=== PATIENT | female | born 1960 | race Caucasian/White ===

== ENCOUNTER → 2017-06-23 | Outpatient (CLI) | payer BC ==
--- NOTE | 2017-06-24 09:33 | MM ---
Reason for exam: screening (asymptomatic). Last mammogram was performed 3 years and 5 months ago. History: Patient is postmenopausal and had first child at age 32. Family history of endometrial cancer in maternal cousin and breast cancer in maternal aunt at age 80. Physical Findings: A clinical breast exam by your physician is recommended on an annual basis and results should be correlated with mammographic findings. MG Screening Mammo w CAD Bilateral CC and MLO view(s) were taken. Prior study comparison: January 11, 2014, bilateral MG screening mammo w CAD. July 20, 2009, bilateral digital screening mammogram. The breast tissue is almost entirely fat. There is no discrete abnormality. ASSESSMENT: Negative, BI-RAD 1 RECOMMENDATION: Routine screening mammogram of both breasts in 1 year.
== END | disposition home or self-care (01) ==
LOC: RADMAMWWP 10:47
PROVIDERS: ATTEND Family Medicine
DX: Z12.31 Encounter for screening mammogram for malignant neoplasm of breast (principal); Z80.3 Family history of malignant neoplasm of breast
CPT/HCPCS: 77067

== ENCOUNTER → 2017-07-08 | Outpatient (CLI) | payer BC ==
--- NOTE | 2017-07-08 08:21 | US ---
EXAMINATION TYPE: US abdomen limited DATE OF EXAM: 07/08/2017 COMPARISON: NONE CLINICAL HISTORY: Abnormal results of liver function R94.5;GERD EXAM MEASUREMENTS: Liver Length: 12.1 cm Gallbladder Wall: 0.2 cm CBD: 0.5 cm Right Kidney: 9.5 x 5.2 x 4.5 cm Pancreas: prominent pancreatic duct = 0.4cm Liver: no masses seen Gallbladder: full of multiple shadowing stones with echoes noted in neck of gallbladder in LLD and p emerson position Evidence for sonographic Ontiveros's sign: No CBD: wnl Right Kidney: wnl IMPRESSION: 1. Prominent pancreatic duct questionable hypoechogenicity within the pancreas recommend CT scan of t he abdomen pelvis. 2. Cholelithiasis but no gallbladder wall thickening or pericholecystic fluid.
== END | disposition home or self-care (01) ==
LOC: RADUSWWP 07:21
PROVIDERS: ATTEND Family Medicine
DX: K80.20 Calculus of gallbladder without cholecystitis without obstruction (principal); R94.5 Abnormal results of liver function studies
CPT/HCPCS: 76705

== ENCOUNTER → 2017-10-02 | Outpatient (CLI) | payer BC ==
--- NOTE | 2017-10-02 12:57 | MR ---
EXAMINATION TYPE: MR pancreas wo/w con DATE OF EXAM: 10/02/2017 COMPARISON: Limited abdominal ultrasound July 08, 2017 HISTORY: Dilated pancreatic duct, abnormal CT and ultrasound. Abnormal liver function test and histor y of reflux. CONTRAST: Standard multiplanar, multisequence MRI departmental protocol utilizing 10 mL intravenous Gadavist ga dolinium contrast. FINDINGS: Pancreas: Pancreas is normal in size without worrisome solid or cystic mass. Pancreatic duct is visua lized slightly more prominent in the head and proximal body and measures up to 4 mm. Seen best on axi al T1-weighted images there is emptying of main pancreatic duct superior and anterior to the common b ile duct emptying, this is noted on axial image 251 versus axial image 226 series 701. Pancreatic fin dings are consistent with underlying divisum. Other: Stone filled gallbladder is redemonstrated. No surrounding inflammatory changes seen. There is no suspicious intrahepatic or extra hepatic biliary dilatation. Liver is normal in size without susp icious solid or cystic mass. Spleen is unremarkable. Both adrenal glands are normal in size and appea r unremarkable. There are few tiny subcentimeter cysts scattered throughout the visualized left kidne y. No hydronephrosis is present bilaterally. Lung bases are grossly clear. There is redemonstration o f fairly moderate size hiatal hernia. There is no suspicious small or large bowel dilatation. A few s cattered colonic diverticula are seen on MRI. Visualized osseous structures are intact. There is no a bdominal ascites. There is no suspicious greater than 1 cm abdominal adenopathy. IMPRESSION: Mild pancreatic ductal dilatation is felt on basis of underlying divisum. Mild duct dilatation is fel t transient as was not present on CT. No suspicious mass identified. Gallstones are redemonstrated.
== END ==
LOC: RADMRIMAIN 07:11
PROVIDERS: ATTEND Surgery
DX: K86.89 Other specified diseases of pancreas (principal); K80.80 Other cholelithiasis without obstruction
CPT/HCPCS: 74183; A9581

== ENCOUNTER 2018-02-15 18:43 | Emergency (ER) | payer BC ==
[2018-02-15 18:52] VITALS: RESP 18
[2018-02-15] MEDS ORDERED: SODIUM CHLORIDE 0.9% 500 ML IV STA (19:29)
--- NOTE | 2018-02-15 19:32 | ED ---
General Adult HPI - General Source: patient, RN notes reviewed Mode of arrival: ambulatory Limitations: no limitations <Isra Pride - Last Filed: 02/15/18 20:45> <Susie Huizar - Last Filed: 02/15/18 22:53> - General Chief complaint: Abdominal Pain Stated complaint: Back/Abdominal Pain Time Seen by Provider: 02/15/18 18:50 - History of Present Illness Initial comments: This is a 57-year-old female presents emergency Department complaining of abdominal cramping. Patient states she's had 3 episodes today with approximately 2 hours in between episodes. Patient states the cramping goes around the whole upper abdomen and into her back. Patient states it makes her nauseous and on the way in to the emergency department she vomited. Patient states currently she has no pain whatsoever. Patient denies any diarrhea. Patient states she had a normal bowel movement today. Patient denies any fever chills per patient denies any chest pain difficulty breathing or shortness of breath. Patient denies any dysuria hematuria urinary frequency. Patient states she has had a tubal ligation but no other abdominal surgeries. Patient denies having similar symptoms in the past. (Isra Pride) - Related Data Home Medications Medication Instructions Recorded Confirmed Omeprazole 20 mg PO HS 03/30/14 02/15/18 Allergies Allergy/AdvReac Type Severity Reaction Status Date / Time No Known Allergies Allergy Verified 02/15/18 18:52 Review of Systems ROS Other: All systems not noted in ROS Statement are negative. <Isra Pride - Last Filed: 02/15/18 20:45> ROS Other: All systems not noted in ROS Statement are negative. <Susie Huizar - Last Filed: 02/15/18 22:53> ROS Statement: Those systems with pertinent positive or pertinent negative responses have been documented in the HPI. Past Medical History Past Medical History: GERD/Reflux History of Any Multi-Drug Resistant Organisms: MRSA Date of last positivie culture/infection: 2011, 2012 MDRO Source:: 2012-BUTTOCKS, 2013-[facility] Past Surgical History: Cardiac Ablation, Tubal Ligation Additional Past Surgical History / Comment(s): CARDIAC ABLATION-2006 Past Anesthesia/Blood Transfusion Reactions: Motion Sickness, Postoperative Nausea & Vomiting (PONV) Past Psychological History: No Psychological Hx Reported Smoking Status: Never smoker Past Alcohol Use History: None Reported Past Drug Use History: None Reported - Past Family History Sister(s) Family Medical History: Cancer <Isra Pride - Last Filed: 02/15/18 20:45> General Exam Limitations: no limitations <Pride,Isra - Last Filed: 02/15/18 20:45> <Susie Huizar - Last Filed: 02/15/18 22:53> - General Exam Comments Initial Comments: GENERAL: Patient is well-developed and well-nourished. Patient is nontoxic and well- hydrated and is in no acute distress. ENT: Neck is soft and supple. No significant lymphadenopathy is noted. Oropharynx is clear. Moist mucous membranes. Neck has full range of motion without eliciting any pain. EYES: The sclera were anicteric and conjunctiva were pink and moist. Extraocular movements were intact and pupils were equal round and reactive to light. Eyelids were unremarkable. PULMONARY: Unlabored respirations. Good breath sounds bilaterally. No audible rales rhonchi or wheezing was noted. CARDIOVASCULAR: There is a regular rate and rhythm without any murmurs gallops or rubs. ABDOMEN: Soft and nontender with normal bowel sounds. No palpable organomegaly was noted. There is no palpable pulsatile mass. SKIN: Skin is clear with no lesions or rashes and otherwise unremarkable. NEUROLOGIC: Patient is alert and oriented x3. Cranial nerves II through XII are grossly intact. Motor and sensory are also intact. Normal speech, volume and content. Symmetrical smile. MUSCULOSKELETAL: Normal extremities with adequate strength and full range of motion. No lower extremity swelling or edema. No calf tenderness. LYMPHATICS: No significant lymphadenopathy is noted PSYCHIATRIC: Normal psychiatric evaluation. (Isra Pride) Vital Signs 02/15/18 02/15/18 02/15/18 18:50 21:17 22:10 Temperature 98.6 F Pulse Rate 110 H 88 74 Respiratory 18 18 18 Rate Blood Pressure 128/64 113/66 119/70 O2 Sat by Pulse 96 95 96 Oximetry Medical Decision Making - Lab Data Result diagrams: 02/15/18 20:05 02/15/18 20:05 <Isra rPide - Last Filed: 02/15/18 20:45> - Lab Data Result diagrams: 02/15/18 20:05 02/15/18 20:05 <Susie Huizar - Last Filed: 02/15/18 22:53> - Medical Decision Making Dr. Huizar will be taking over the care of this patient at 9 PM. (Isra Pride) Patient care was signed out to me by Dr. Pride. Patient with episodic abdominal pain with associated nausea. Labs revealed elevated transaminases, a gallbladder ultrasound was ordered. At time of sign out patient's gallbladder ultrasound was pending gallbladder ultrasound revealed a intractable gallbladder with no evidence of acute cholecystitis but multiple gallstones and no stones in the ducts. I reevaluated patient who has remained comfortable throughout her ED stay with no further episodes of abdominal pain nausea or vomiting. Ultrasound results Were discussed with the patient who states she has followed with Dr. Mckay in the past for this, she will contact his office tomorrow for reevaluation and re-discussion of elective cholecystectomy. Return parameters were discussed. All questions pertaining care were answered best my ability patient was discharged home in stable condition. (Susie Huizar) - Lab Data Lab Results 02/15/18 02/15/18 02/15/18 Range/Units 20:05 20:05 20:05 WBC 8.9 (3.8-10.6) k/uL RBC 4.82 (3.80-5.40) m/uL Hgb 14.1 (11.4-16.0) gm/dL Hct 43.2 (34.0-46.0) % MCV 89.5 (80.0-100.0) fL MCH 29.3 (25.0-35.0) pg MCHC 32.8 (31.0-37.0) g/dL RDW 13.2 (11.5-15.5) % Plt Count 211 (150-450) k/uL Neutrophils % 86 % Lymphocytes % 10 % Monocytes % 3 % Eosinophils % 0 % Basophils % 0 % Neutrophils # 7.7 (1.3-7.7) k/uL Lymphocytes # 0.9 L (1.0-4.8) k/uL Monocytes # 0.3 (0-1.0) k/uL Eosinophils # 0.0 (0-0.7) k/uL Basophils # 0.0 (0-0.2) k/uL Sodium 139 (137-145) mmol/L Potassium 4.2 (3.5-5.1) mmol/L Chloride 105 (98-107) mmol/L Carbon Dioxide 24 (22-30) mmol/L Anion Gap 10 mmol/L BUN 16 (7-17) mg/dL Creatinine 0.70 (0.52-1.04) mg/dL Est GFR (CKD-EPI)AfAm >90 (>60 ml/min/1.73 sqM) Est GFR (CKD-EPI)NonAf >90 (>60 ml/min/1.73 sqM) Glucose 117 H (74-99) mg/dL Calcium 9.7 (8.4-10.2) mg/dL Total Bilirubin 2.0 H (0.2-1.3) mg/dL AST 415 H (14-36) U/L ALT 289 H (9-52) U/L Alkaline Phosphatase 173 H (38-126) U/L Total Protein 7.0 (6.3-8.2) g/dL Albumin 4.1 (3.5-5.0) g/dL Amylase 58 (30-110) U/L Lipase 147 (23-300) U/L Urine Color Yellow Urine Appearance Cloudy H (Clear) Urine pH 8.0 (5.0-8.0) Ur Specific [place] 1.018 (1.001-1.035) Urine Protein 1+ H (Negative) Urine Glucose (UA) Negative (Negative) Urine Ketones Negative (Negative) Urine Blood Negative (Negative) Urine Nitrite Negative (Negative) Urine Bilirubin 1+ H (Negative) Urine Urobilinogen 2.0 (<2.0) mg/dL Ur Leukocyte Esterase Moderate H (Negative) Urine WBC 12 H (0-5) /hpf Ur Squamous Epith Cells 12 H (0-4) /hpf Amorphous Sediment Rare H (None) /hpf Urine Bacteria Moderate H (None) /hpf Urine Mucus Few H (None) /hpf Disposition <Isra Pride - Last Filed: 02/15/18 20:45> Is patient prescribed a controlled substance at d/c from ED?: No <Susie Huizar - Last Filed: 02/15/18 22:53> Clinical Impression: Cholelithiases Disposition: HOME SELF-CARE Condition: Good Instructions: Biliary Colic (ED), Gallstones (ED) Additional Instructions: Call your surgeon tomorrow to establish follow up and discuss elective cholecystectomy Referrals: Donta Nelson MD [Primary Care Provider] - 1-2 days
[2018-02-15 20:16] LABS: Basophils % (A) 0 %; Eosinophils % (A) 0 %; HCT 43.2 % (34.0-46.0); HGB 14.1 gm/dL (11.4-16.0); Lymphocytes # (A) 0.9 k/uL (1.0-4.8); Lymphocytes % (A) 10 %; MCH 29.3 pg (25.0-35.0); MCHC 32.8 g/dL (31.0-37.0); MCV 89.5 fL (80.0-100.0); Mean Platelet Volume 6.6; Monocytes # (A) 0.3 k/uL (0-1.0); Monocytes % (A) 3 %; Neutrophils # (A) 7.7 k/uL (1.3-7.7); Neutrophils % (A) 86 %; Platelet Count 211 k/uL (150-450); RBC 4.82 m/uL (3.80-5.40); RDW 13.2 % (11.5-15.5); WBC 8.9 k/uL (3.8-10.6)
[2018-02-15 20:19] LABS: Amorphous Sediment,Urine Rare /hpf; Appearance,Urine Cloudy (Clear); Bacteria,Urine Moderate /hpf; Bilirubin,Urine 1+ (Negative); Blood,Urine Negative (Negative); Color,Urine Yellow; Glucose,Urine (UA) Negative (Negative); Ketones,Urine Negative (Negative); Leukocyte Esterase,Urine Moderate (Negative); Mucus,Urine Few /hpf; Nitrite,Urine Negative (Negative); Protein,Urine 1+ (Negative); Specific Gravity,Urine 1.018 (1.001-1.035); Squamous Epithelial Cell,Urine 12 /hpf (0-4); WBC,Urine 12 /hpf (0-5)
[2018-02-15 20:28] LABS: ALT 289 U/L (9-52); AST 415 U/L (14-36); Albumin 4.1 g/dL (3.5-5.0); Alkaline Phosphatase 173 U/L (38-126); Amylase 58 U/L (30-110); Anion Gap 10 mmol/L; Blood Urea Nitrogen 16 mg/dL (7-17); Calcium 9.7 mg/dL (8.4-10.2); Carbon Dioxide 24 mmol/L (22-30); Chloride 105 mmol/L (98-107); Glucose 117 mg/dL (74-99); Lipase 147 U/L (23-300); Potassium 4.2 mmol/L (3.5-5.1); Sodium 139 mmol/L (137-145)
--- NOTE | 2018-02-15 20:28 | XR ---
EXAMINATION TYPE: XR KUB DATE OF EXAM: 02/15/2018 COMPARISON: NONE HISTORY: Abdominal pain TECHNIQUE: 2 views FINDINGS: There is no sign of intestinal obstruction or pneumoperitoneum. Fecal pattern is normal. Gala ng bases are clear. There are no pathologic calcifications. IMPRESSION: Nonacute abdomen.
--- NOTE | 2018-02-15 22:10 | US ---
EXAMINATION TYPE: US gallbladder DATE OF EXAM: 02/15/2018 COMPARISON: 07/08/2017 CLINICAL HISTORY: Pain. Back pain, epigastric pain, nausea and vomiting today. History of gallstones EXAM MEASUREMENTS: Liver Length: 13.3 cm Gallbladder Wall: 0.4 cm CBD: 0.4 cm Right Kidney: 9.5 x 4.3 x 4.3 cm Technical limitations due to large amount of overlying bowel content Pancreas: duct = 0.3cm Liver: visualized portions appear wnl Gallbladder: filled with stones, GB wall upper limits of normal Evidence for sonographic Ontiveros's sign: yes CBD: appears wnl as visualized Right Kidney: no evidence of hydronephrosis or mass as visualized IMPRESSION: There is a contracted gallbladder filled with stones. No adverse change compared to old e xam. No dilated ducts.
[2018-02-15 23:28] VITALS: BP 128/81; PULSE 94; TEMP 97.8
== END 2018-02-15 23:28 | disposition home or self-care (01) ==
LOC: EC 18:43
DX: K80.20 Calculus of gallbladder without cholecystitis without obstruction (principal); K21.9 Gastro-esophageal reflux disease without esophagitis; Z98.51 Tubal ligation status; Z79.899 Other long term (current) drug therapy
CPT/HCPCS: 36415; 74018; 76705; 80053; 81001; 82150; 83690; 85025; 96360; 99284

== ENCOUNTER 2018-03-19 07:50 | Day surgery (SDC) | payer BC ==
[2018-03-16 11:09] VITALS: BMI 38.2
[~2018-03-19 07:50] MED LIST: HEPARIN SODIUM,PORCINE 5,000 UNIT/ML 1 ML VIAL SQ ONE; LACTATED RINGERS 1,000 ML IV SCH; ceFAZolin IN SWFI 2 GM/20 ML SYRINGE IVP ONE
--- NOTE | 2018-03-19 08:31 | P.GSHP ---
History of Present Illness H&P Date: 03/19/18 Chief Complaint: Chronic cholecystitis Patient seen in the office earlier this year. Has a history of known gallstones. Slightly elevated liver enzymes. Ultrasound also showed a dilated pancreatic duct. Follow-up CAT scan and subsequent MRI shows no definite pancreatic abnormality with the exception of pancreatic divisum. Patient has had some upper abdominal pain recently. Recent ultrasound again shows contracted gallbladder with stones. Past Medical History Past Medical History: GERD/Reflux Additional Past Medical History / Comment(s): GALLBLADDER DISORDER History of Any Multi-Drug Resistant Organisms: MRSA Date of last positivie culture/infection: 2011, 2012 MDRO Source:: 2011-BUT[place]OCKS, 2012-[facility] Past Surgical History: Cardiac Ablation, Tubal Ligation Additional Past Surgical History / Comment(s): CARDIAC ABLATION-2005 Past Anesthesia/Blood Transfusion Reactions: Motion Sickness, Postoperative Nausea & Vomiting (PONV) Smoking Status: Never smoker - Past Family History Sister(s) Family Medical History: Cancer Medications and Allergies Home Medications Medication Instructions Recorded Confirmed Type Omeprazole 20 mg PO HS 03/30/14 03/19/18 History Allergies Allergy/AdvReac Type Severity Reaction Status Date / Time No Known Allergies Allergy Verified 03/19/18 08:00 Surgical - Exam Vital Signs Temp Pulse Resp BP Pulse Ox 98.8 F 110 H 20 115/80 97 03/19/18 08:13 03/19/18 08:13 03/19/18 08:13 03/19/18 08:13 03/19/18 08:13 Physical exam: General: Well-developed, well-nourished HEENT: Normocephalic, sclerae nonicteric Abdomen: Nontender, nondistended Extremities: No edema Neuro: Alert and oriented Assessment and Plan (1) Chronic cholecystitis Narrative/Plan: Will proceed with laparoscopic cholecystectomy. Risks of bleeding, infection, bile leak, bile duct injury, retained common bile duct stone, trocar injury, conversion to an open procedure, hernia, anesthesia related complications were reviewed. The patient understands and wishes to proceed. Current Visit: Yes Status: Acute Code(s): K81.1 - CHRONIC CHOLECYSTITIS SNOMED Code(s): 02787653
[2018-03-19] MEDS ORDERED: LIDOCAINE 1% 20 ML VIAL (10MG/ML) FOR IV START INTRADERMA ONE (08:33)
[2018-03-19] MEDS ORDERED: DEXAMETHASONE SOD PHOS (MDV) 100 MG/10 ML VIAL IVP ONE (08:36)
[2018-03-19] MEDS ORDERED: ONDANSETRON 4 MG/2 ML VIAL IVP ONE ×2 (08:36→10:40)
[2018-03-19] MEDS ORDERED: MIDAZOLAM 2 MG/2 ML VIAL IVP ONE (08:49)
[2018-03-19] MEDS ORDERED: LIDOCAINE 1% INJ 10MG/ML (20 ML MDV) ONE (09:10)
[2018-03-19] MEDS ORDERED: ROCURONIUM BROMIDE 10 MG/ML 10 ML VIAL IV ONE (09:10)
[2018-03-19] MEDS ORDERED: GLYCOPYRROLATE 0.2 MG/ML 2 ML VIAL ONE (09:10)
[2018-03-19] MEDS ORDERED: NEOSTIGMINE 1 MG/ML 10 ML VIAL ONE (09:10)
[2018-03-19] MEDS ORDERED: fentaNYL (PF) 50 MCG/ML 2 ML AMP ONE (09:10)
[2018-03-19] MEDS ORDERED: PROPOFOL 10 MG/ML 20 ML VIAL IV ONE (09:10)
[2018-03-19] MEDS ORDERED: PHENYLEPHRINE-0.9% NACL SYG 1 MG/10 ML SYRINGE ONE (09:10)
[2018-03-19] MEDS ORDERED: MIDAZOLAM 2 MG/2 ML VIAL ONE (09:10)
[2018-03-19] MEDS ORDERED: BUPIVACAIN-EPI 0.5%-1:200,000 30 ML VIAL SQ ONE ×2 (09:33)
[2018-03-19] MEDS ORDERED: HYDROcodone/APAP 5-325MG 1 EACH TAB PO PRN (10:04)
[2018-03-19] MEDS ORDERED: NALOXONE 0.4 MG/ML 1 ML VIAL IV PRN (10:04)
--- NOTE | 2018-03-19 10:06 | P.OP ---
Date of Procedure: 03/19/18 Procedure(s) Performed: PREOPERATIVE DIAGNOSIS: Chronic cholecystitis POSTOPERATIVE DIAGNOSIS: Same PROCEDURE: Laparoscopic cholecystectomy SURGEON: Adamaris EBL: Minimal see anesthesia record ANESTHESIA: Gen. COMPLICATIONS: None OPERATIVE PROCEDURE: The patient was brought and placed on the operating room table in the supine position. The patient was placed under general anesthesia at that time. The abdomen was prepped and draped in the usual sterile fashion. A small vertical infraumbilical incision was made. The fascia was grasped with the Waqas forceps. The fascia was retracted anteriorly. The Veress needle was advanced into the peritoneal cavity. The saline drop test was normal. Insufflation took place up to 15 mmHg. A 5 mm optical trocar was advanced and the peritoneal cavity. 2 additional 5 mm trochars were placed in the right upper quadrant under direct visualization. A 10 mm trocar was advanced into the epigastric incision site. The gallbladder was retracted superiorly and laterally. The peritoneum overlying the infundibulum was bluntly dissected. The patient's cystic duct was visualized. The junction between the cystic duct common and hepatic duct was identified. The cystic duct was then divided after placement of 3 10 mm clips on the patient's side and one on the specimen side. The cystic artery was identified and clipped as well. A small vessel was seen along the gallbladder fossa and clipped as well. The gallbladder was then removed from the liver bed using electrocautery. The gallbladder was then removed from the epigastric trocar site with an Endo Catch bag. The gallbladder fossa was irrigated with saline. There was no evidence of any bleeding or biliary drainage seen. The trochars were then removed. The fascia at the 10 millimeter site was closed using a Israel- Chandler 0 Vicryl stitch. The skin at all 4 sites was closed using a 4-0 Monocryl stitch. At the end of this procedure the sponge and needle counts were correct. DISPOSITION: Stable to the recovery room
[2018-03-19 10:19] VITALS: TEMP 98.2
[2018-03-19] MEDS ORDERED: LACTATED RINGERS 1,000 ML IV ONE (10:24)
[2018-03-19] MEDS ORDERED: HYDROmorphone 1 MG/ML 1 ML SYRINGE IVP ONE (10:41)
[2018-03-19] MEDS ORDERED: PROMETHAZINE INJ 25 MG/ML 1 ML VIAL IVPB ONE (11:48)
[2018-03-19 11:52] VITALS: RESP 18
[2018-03-19 12:53] VITALS: BP 135/88; PULSE 89
== END 2018-03-19 14:17 | disposition home or self-care (01) ==
LOC: OR 07:50
PROVIDERS: ATTEND Surgery
DX: K80.10 Calculus of gallbladder with chronic cholecystitis without obstruction (principal); K21.9 Gastro-esophageal reflux disease without esophagitis; Z86.14 Personal history of Methicillin resistant Staphylococcus aureus infection; Z79.899 Other long term (current) drug therapy
CPT/HCPCS: 88304; 47562; J2250; J1644; J2550; J2710; J2405; J2001; J3010; J1170; J1100; J2370; J2704; J0690

== ENCOUNTER → 2023-02-25 | Outpatient (CLI) | payer BC ==
--- NOTE | 2023-02-25 16:41 | BD ---
EXAMINATION TYPE: Axial Bone Density DATE OF EXAM: 02/25/2023 CLINICAL HISTORY: 62 years old Female. ICD-10 CODE: Z78.0 Menopause Height: 63.25 Weight: 213 FRAX RISK QUESTIONS: Family History (Parent hip fracture): no History of Fracture in Adulthood: no Secondary Osteoporosis: yes 5. Chronic liver disease: yes, fatty liver Rheumatoid Arthritis: no RISK FACTORS HISTORY OF: Family History of Osteoporosis: yes, mother Active: yes Diet low in dairy products/other sources of calcium: yes Postmenopausal woman: yes Lost more than 2 inches in height since high school: no Frequent falls: no MEDICATIONS: Additional Medications: yes reflux EXAM MEASUREMENTS: Bone mineral densitometry was performed using the [employer] System. Bone mineral density as measured about the Lumbar spine is: ----- L1-L4(G/cm2): 1.158 T Score Values are as follows: ----- L1: -1.1 ----- L2: -0.3 ----- L3: 0.4 ----- L4: -0.2 ----- L1-L4: -0.2 Z Score Values are as follows: ----- L1: 0.7 ----- L2: 0.1 ----- L3: 0.8 ----- L4: 0.2 ----- L1-L4: 0.2 Bone mineral density baseline Bone mineral density about the R hip (g/cm2): 1.024 Bone mineral density about the L hip (g/cm2): 1.038 T Score values are as follows: -----R Neck: -0.6 -----L Neck: -0.5 -----R Total: 0.1 -----L Total: 0.2 Z Score values are as follows: -----R Neck: 0.1 -----L Neck: 0.2 -----R Total: 0.5 -----L Total: 0.6 Bone mineral density baseline FRAX%s: The graph provided illustrates a 6.5% chance for a major osteoporotic fx and a 0.3% chance fo r the hips probability for fx in 10 years time. IMPRESSION: Normal (Values between +1 and -1 indicate normal bone mass). Consider repeating this study in 5 year s or sooner if there is some new clinical indication. NOTE: T-SCORE=SD OF THE YOUNG ADULT MEAN.
--- NOTE | 2023-02-26 08:46 | MM ---
Reason for Exam: Screening (asymptomatic). Last mammogram was performed 5 year(s) and 8 month(s) ago. Patient History: Menarche at age 9. First Full-Term at age 32. Late child-bearing (after 30). Postmenopausal. Maternal cousin had breast cancer, age 65. Maternal aunt had breast cancer, age 80. Risk Values: Vesta 5 year model risk: 2.4%. NCI Lifetime model risk: 10.0%. Prior Study Comparison: 07/20/2009 Bilateral Screening Mammogram, [facility]. 01/11/2014 Bilateral Screening Mammogram, [facility]. 06/23/2017 Bilateral Screening Mammogram, [facility]. Tissue Density: There are scattered fibroglandular densities. Findings: Analyzed By CAD. There is no suspicious group of microcalcifications or new suspicious mass in either breast. Overall Assessment: Negative, BI-RAD 1 Management: Screening Mammogram of both breasts in 1 year. . Patient should continue monthly self-breast exams. A clinical breast exam by your physician is recommended on an annual basis. This exam should not preclude additional follow-up of suspicious palpable abnormalities. Note on Vesta scores and lifetime risk: 1. A Vesta score greater than 3% is considered moderate risk. If this is the case, consider specialist referral to assess eligibility for a risk reducing agent. 2. If overall lifetime risk for the development of breast cancer is 20% or higher, the patient may qualify for future screening with alternating mammogram and breast MRI. Electronically signed and approved by: Gorver Moreno M.D. Radiologis
== END | disposition home or self-care (01) ==
LOC: RADMAMWWP 06:55
PROVIDERS: ATTEND Family Medicine
DX: Z12.31 Encounter for screening mammogram for malignant neoplasm of breast (principal); M85.88 Other specified disorders of bone density and structure, other site; Z78.0 Asymptomatic menopausal state; Z80.3 Family history of malignant neoplasm of breast
CPT/HCPCS: 77063; 77067; 77080

== ENCOUNTER 2023-06-25 12:10 | Emergency (ER) | payer BC ==
[2023-06-25 12:34] VITALS: RESP 18
--- NOTE | 2023-06-25 12:59 | ED ---
Dizziness HPI - General Chief Complaint: Syncope Stated Complaint: Syncope Time Seen by Provider: 06/25/23 12:12 Source: EMS, RN notes reviewed, old records reviewed Mode of arrival: EMS Limitations: no limitations - History of Present Illness Initial Comments: This is a 62-year-old female to the emergency room for evaluation today. Patient presents to the ER today for evaluation regards to dizzinesssyncopal event. Patient had a syncopal event while at work which was witnessed by coworkers insisted patient was more unresponsive than she did pass out she did not fall to ground patient currently is back to baseline she has no complaint of headache chest pain shortness breath or abdominal pain. MD Complaint: dizziness, lightheadedness, near syncope -: days(s) Timing: sudden onset, gradual onset Description: near-syncope (Syncope) History of Same: No History of Trauma: No Severity: moderate Improves With: remaining still Worsens With: nothing Associated Symptoms: syncope, weakness - Related Data Home Medications Medication Instructions Recorded Confirmed Omeprazole 20 mg PO DAILY 03/30/14 06/25/23 D-Methorphan/PE/Acetaminophen 1 cap PO BID PRN 06/25/23 06/25/23 [Vicks Dayquil Liquicaps] Unknown Decongestant Nasal Gering 1 dose EA NOSTRIL BID PRN 06/25/23 06/25/23 Allergies Allergy/AdvReac Type Severity Reaction Status Date / Time No Known Allergies Allergy Verified 06/25/23 13:52 Review of Systems ROS Statement: Those systems with pertinent positive or pertinent negative responses have been documented in the HPI. ROS Other: All systems not noted in ROS Statement are negative. Past Medical History Past Medical History: GERD/Reflux Additional Past Medical History / Comment(s): GALLBLADDER DISORDER History of Any Multi-Drug Resistant Organisms: MRSA Date of last positivie culture/infection: 2011, 2012 MDRO Source:: 2011-[place]S, 2013-[facility] Past Surgical History: Cardiac Ablation, Tubal Ligation Additional Past Surgical History / Comment(s): CARDIAC ABLATION-2005 Past Anesthesia/Blood Transfusion Reactions: Motion Sickness, Postoperative Nausea & Vomiting (PONV) Past Psychological History: No Psychological Hx Reported Past Alcohol Use History: None Reported Past Drug Use History: None Reported - Past Family History Sister(s) Family Medical History: Cancer General Exam Limitations: no limitations General appearance: alert, in no apparent distress Head exam: Present: atraumatic, normocephalic, normal inspection Eye exam: Present: normal appearance, PERRL, EOMI. Absent: scleral icterus, conjunctival injection, periorbital swelling ENT exam: Present: normal exam, mucous membranes moist Neck exam: Present: normal inspection. Absent: tenderness, meningismus, lymphadenopathy Respiratory exam: Present: normal lung sounds bilaterally. Absent: respiratory distress, wheezes, rales, rhonchi, stridor Cardiovascular Exam: Present: regular rate, normal rhythm, normal heart sounds. Absent: systolic murmur, diastolic murmur, rubs, gallop, clicks GI/Abdominal exam: Present: soft, normal bowel sounds. Absent: distended, tenderness, guarding, rebound, rigid Extremities exam: Present: normal inspection, full ROM, normal capillary refill. Absent: tenderness, pedal edema, joint swelling, calf tenderness Back exam: Present: normal inspection Neurological exam: Present: alert, oriented X3, CN II-XII intact Psychiatric exam: Present: normal affect, normal mood Skin exam: Present: warm, dry, intact, normal color. Absent: rash Course Vital Signs 06/25/23 06/25/23 06/25/23 12:26 15:19 16:17 Temperature 97.8 F 97.7 F Pulse Rate 82 95 92 Respiratory 18 18 18 Rate Blood Pressure 114/75 126/74 O2 Sat by Pulse 99 99 99 Oximetry - Reevaluation(s) Reevaluation #1: Medical records reviewed Reevaluation #2: Patient symptoms improved Reevaluation #3: Patient informed results and questions answered Reevaluation #4: Was pt. sent in by a medical professional or institution (, PA, COLORER, urgent care, hospital, or prison...) When possible be specific @ -no Did you speak to anyone other than the patient for history (EMS, parent, family, police, friend...)? What history was obtained from this source @ -no Did you review nursing and triage notes (agree or disagree)? Why? @ -agree Are old charts reviewed (outside hosp., previous admission, EMS record, old EKG, old radiological studies, urgent care reports/EKG's, prison records)? Report findings @ -yes Differential Diagnosis (chest pain, altered mental status, abdominal pain women, abdominal pain men, vaginal bleeding, weakness, fever, dyspnea, syncope, headache, dizziness, GI bleed, back pain, seizure, CVA, palpatations, mental health, musculoskeletal)? @ -prior EKG interpreted by me (3pts min.). @ -yes X-rays interpreted by me (1pt min.). @ -yes negative for acute disease CT interpreted by me (1pt min.). @ -no U/S interpreted by me (1pt. min.). @ -no What testing was considered but not performed or refused? (CT, X-rays, U/S, lab s)? Why? @ -none What meds were considered but not given or refused? Why? @ -none Did you discuss the management of the patient with other professionals (professionals i.e. , PA, COLORER, lab, RT, psych nurse, long term care social worker, vp product, teacher, public safety officer, case folder)? Give summary @ -no Was smoking cessation discussed for >3mins.? @ -no Were there social determinants of health that impacted care today? How? (Homelessness, low income, unemployed, alcoholism, drug addiction, transportation, low edu. Level, literacy, decrease access to med. care, [facility], rehab)? @ -none Was there de-escalation of care discussed even if they declined (Discuss DNR or withdrawal of care, Hospice)? DNR status @ -no What co-morbidities impacted this encounter? (DM, HTN, Smoking, COPD, CAD, Cancer, CVA, ARF, Chemo, Hep., AIDS, mental health diagnosis, sleep apnea, morbid obesity)? @ -none Was patient admitted / discharged? Hospital course, mention meds given and route, prescriptions, significant lab abnormalities, going to OR and other pertinent info. @ - 62 female to the ER today for evaluation today. Patient presents today for evaluation regards to syncopal event of. Unresponsiveness. Patient is no acute findings here in the ER feels well can be discharged home Discharge Was critical care preformed (if so, how long)? @ -no Undiagnosed new problem with uncertain prognosis? @ -no Drug Therapy requiring intensive monitoring for toxicity (Heparin, Nitro, Insulin, Cardizem)? @ -no Were any procedures done? @ -no Diagnosis/symptom? @ -Syncope and unresponsiveness Acute, or Chronic, or Acute on Chronic? @ -Acute Uncomplicated (without systemic symptoms) or Complicated (systemic symptoms)? @ -Complicated Side effects of treatment? @ -no Exacerbation, Progression, or Severe Exacerbation? @ -exacerbation Poses a threat to life or bodily function? How? (Chest pain, [place], [place], pneumonia, PE, COPD, DKA, ARF, appy, cholecystitis, CVA, Diverticulitis, Homicidal, Suicidal, threat to staff... and all critical care pts) @ -yes with any cause of syncope Reevaluation #5: Differential Dizziness: Benign paroxysmal positional Vertigo, Menieres disease, otitis media, acoustic neuroma, vertebrobasilar insufficiency, cerebellar stroke, encephalitis, hypovolemic, arrhythmia, coronary artery syndrome, anemia, this is not meant to be an all-inclusive list EKG Findings - EKG Comments: EKG Findings:: EKG is sinus 76 AL 152 QRS 88 QTc 392 - EKG Results: EKG: interpreted by [facility] Medical Decision Making - Medical Decision Making 62 female to the ER today for evaluation today. Patient presents today for evaluation regards to syncopal event of. Unresponsiveness. Patient is no acute findings here in the ER feels well can be discharged home - Lab Data Result diagrams: 06/25/23 13:09 06/25/23 13:09 Lab Results 06/25/23 06/25/23 06/25/23 Range/Units 13:09 13:09 13:09 WBC 14.5 H (3.8-10.6) k/uL RBC 5.26 (3.80-5.40) m/uL Hgb 16.1 H (11.4-16.0) gm/dL Hct 46.5 H (34.0-46.0) % MCV 88.5 (80.0-100.0) fL MCH 30.7 (25.0-35.0) pg MCHC 34.7 (31.0-37.0) g/dL RDW 12.8 (11.5-15.5) % Plt Count 224 (150-450) k/uL MPV 7.7 Neutrophils % 76 % Lymphocytes % 15 % Monocytes % 7 % Eosinophils % 1 % Basophils % 0 % Neutrophils # 11.1 H (1.3-7.7) k/uL Lymphocytes # 2.1 (1.0-4.8) k/uL Monocytes # 1.1 H (0-1.0) k/uL Eosinophils # 0.1 (0-0.7) k/uL Basophils # 0.0 (0-0.2) k/uL PT 10.9 (10.0-12.5) sec INR 1.0 (<1.2) APTT 19.7 L (22.0-30.0) sec D-Dimer 0.57 (<0.60) mg/L FEU Sodium 137 (137-145) mmol/L Potassium 3.7 (3.5-5.1) mmol/L Chloride 102 (98-107) mmol/L Carbon Dioxide 22 (22-30) mmol/L Anion Gap 13 mmol/L BUN 29 H (7-17) mg/dL Creatinine 0.68 (0.52-1.04) mg/dL Est GFR (CKD-EPI)AfAm >90 (>60 ml/min/1.73 sqM) Est GFR (CKD-EPI)NonAf >90 (>60 ml/min/1.73 sqM) Glucose 101 H (74-99) mg/dL Calcium 9.1 (8.4-10.2) mg/dL Magnesium 1.9 (1.6-2.3) mg/dL Total Bilirubin 0.8 (0.2-1.3) mg/dL AST 72 H (14-36) U/L ALT 75 H (4-34) U/L Alkaline Phosphatase 137 H (38-126) U/L Troponin I (0.000-0.034) ng/mL Total Protein 6.3 (6.3-8.2) g/dL Albumin 3.6 (3.5-5.0) g/dL Lipase 181 (23-300) U/L 06/25/23 Range/Units 13:09 WBC (3.8-10.6) k/uL RBC (3.80-5.40) m/uL Hgb (11.4-16.0) gm/dL Hct (34.0-46.0) % MCV (80.0-100.0) fL MCH (25.0-35.0) pg MCHC (31.0-37.0) g/dL RDW (11.5-15.5) % Plt Count (150-450) k/uL MPV Neutrophils % % Lymphocytes % % Monocytes % % Eosinophils % % Basophils % % Neutrophils # (1.3-7.7) k/uL Lymphocytes # (1.0-4.8) k/uL Monocytes # (0-1.0) k/uL Eosinophils # (0-0.7) k/uL Basophils # (0-0.2) k/uL PT (10.0-12.5) sec INR (<1.2) APTT (22.0-30.0) sec D-Dimer (<0.60) mg/L FEU Sodium (137-145) mmol/L Potassium (3.5-5.1) mmol/L Chloride (98-107) mmol/L Carbon Dioxide (22-30) mmol/L Anion Gap mmol/L BUN (7-17) mg/dL Creatinine (0.52-1.04) mg/dL Est GFR (CKD-EPI)AfAm (>60 ml/min/1.73 sqM) Est GFR (CKD-EPI)NonAf (>60 ml/min/1.73 sqM) Glucose (74-99) mg/dL Calcium (8.4-10.2) mg/dL Magnesium (1.6-2.3) mg/dL Total Bilirubin (0.2-1.3) mg/dL AST (14-36) U/L ALT (4-34) U/L Alkaline Phosphatase (38-126) U/L Troponin I <0.012 (0.000-0.034) ng/mL Total Protein (6.3-8.2) g/dL Albumin (3.5-5.0) g/dL Lipase (23-300) U/L - EKG Data -: EKG Interpreted by [facility] - Radiology Data Radiology results: report reviewed (Chest x-rays negative for acute disease), image reviewed Disposition Clinical Impression: Syncope Disposition: HOME SELF-CARE Condition: Good Instructions (If sedation given, give patient instructions): Syncope (ED) Is patient prescribed a controlled substance at d/c from ED?: No Referrals: Donta Nelson MD [Primary Care Provider] - 1-2 days Time of Disposition: 15:00
[2023-06-25] MEDS ORDERED: SODIUM CHLORIDE 0.9% 1,000 ML IV STA (13:02)
[2023-06-25 13:30] LABS: ALT 75 U/L (4-34); AST 72 U/L (14-36); African American GFR (CKD) >90 (>60 ml/min/1.73 sqM); Albumin 3.6 g/dL (3.5-5.0); Alkaline Phosphatase 137 U/L (38-126); Anion Gap 13 mmol/L; Blood Urea Nitrogen 29 mg/dL (7-17); Calcium 9.1 mg/dL (8.4-10.2); Carbon Dioxide 22 mmol/L (22-30); Chloride 102 mmol/L (98-107); Glucose 101 mg/dL (74-99); Lipase 181 U/L (23-300); Magnesium 1.9 mg/dL (1.6-2.3); Non-African American GFR(CKD) >90 (>60 ml/min/1.73 sqM); Potassium 3.7 mmol/L (3.5-5.1); Sodium 137 mmol/L (137-145); Total Bilirubin 0.8 mg/dL (0.2-1.3); Total Protein 6.3 g/dL (6.3-8.2)
[2023-06-25 13:49] LABS: Basophils % (A) 0 %; Eosinophils # (A) 0.1 k/uL (0-0.7); Eosinophils % (A) 1 %; HCT 46.5 % (34.0-46.0); HGB 16.1 gm/dL (11.4-16.0); Lymphocytes # (A) 2.1 k/uL (1.0-4.8); Lymphocytes % (A) 15 %; MCH 30.7 pg (25.0-35.0); MCHC 34.7 g/dL (31.0-37.0); MCV 88.5 fL (80.0-100.0); Mean Platelet Volume 7.7; Monocytes # (A) 1.1 k/uL (0-1.0); Monocytes % (A) 7 %; Neutrophils # (A) 11.1 k/uL (1.3-7.7); Neutrophils % (A) 76 %; Platelet Count 224 k/uL (150-450); RBC 5.26 m/uL (3.80-5.40); RDW 12.8 % (11.5-15.5); WBC 14.5 k/uL (3.8-10.6)
[2023-06-25 13:56] LABS: Prothrombin Time 10.9 sec (10.0-12.5)
[2023-06-25 14:16] LABS: Partial Thromboplastin Time 19.7 sec (22.0-30.0)
--- NOTE | 2023-06-25 14:52 | XR ---
EXAMINATION TYPE: XR chest 2V DATE OF EXAM: 06/25/2023 COMPARISON: None INDICATION: Chest pain, syncope TECHNIQUE: Frontal and lateral views of the chest are obtained. FINDINGS: The heart size is normal. The pulmonary vasculature is normal. The lungs are clear. IMPRESSION: 1. No acute pulmonary process.
[2023-06-25 16:37] VITALS: BP 126/74; PULSE 92; TEMP 97.7
== END 2023-06-25 16:18 | disposition home or self-care (01) ==
LOC: EC 12:10
DX: R55 Syncope and collapse (principal); K21.9 Gastro-esophageal reflux disease without esophagitis; Z79.899 Other long term (current) drug therapy
CPT/HCPCS: 36415; 71046; 80053; 83690; 83735; 84484; 85025; 85379; 85610; 85730; 93005; 96360; 96361; 99285

== ENCOUNTER → 2024-12-13 | Outpatient (CLI) | payer MEDICARE ==
--- NOTE | 2024-12-13 17:59 | MM ---
Reason for Exam: Screening (asymptomatic). Last mammogram was performed 1 year(s) and 10 month(s) ago. Patient History: Menarche at age 9. First Full-Term at age 32. Late child-bearing (after 30). Postmenopausal. Maternal cousin had breast cancer, age 65. Maternal aunt had breast cancer, age 80. Risk Values: Vesta 5 year model risk: 2.5%. NCI Lifetime model risk: 9.4%. Prior Study Comparison: 01/11/2014 Bilateral Screening Mammogram, [facility]. 06/23/2017 Bilateral Screening Mammogram, [facility]. 02/25/2023 Bilateral MG 3D screening mammo w/cad, [facility]. Tissue Density: The breasts are almost entirely fatty. Findings: Analyzed By CAD. Unchanged focal asymmetry anterior upper outer quadrant left breast. There is no suspicious group of microcalcifications or new suspicious mass in either breast. Overall Assessment: Benign, BI-RAD 2 Management: Screening Mammogram of both breasts in 1 year. Patient should continue monthly self-breast exams. A clinical breast exam by your physician is recommended on an annual basis. This exam should not preclude additional follow-up of suspicious palpable abnormalities. Note on Vesta scores and lifetime risk: 1. A Vesta score greater than 3% is considered moderate risk. If this is the case, consider specialist referral to assess eligibility for a risk reducing agent. 2. If overall lifetime risk for the development of breast cancer is 20% or higher, the patient may qualify for future screening with alternating mammogram and breast MRI. [facility], , 12/13/2024 5:56 PM. Electronically signed and approved by: Chaz Quinn M.D. Radiologist
== END | disposition home or self-care (01) ==
LOC: RADMAMWWP 11:27
PROVIDERS: ATTEND Family Medicine
DX: Z12.31 Encounter for screening mammogram for malignant neoplasm of breast (principal); R92.313 Mammographic fatty tissue density, bilateral breasts; Z78.0 Asymptomatic menopausal state; Z80.3 Family history of malignant neoplasm of breast
CPT/HCPCS: 77063; 77067